=== PATIENT | female | born 1995 | race Native Hawaiian/Other Pacific Islander ===

== ENCOUNTER 2018-10-22 02:22 | Emergency (ER) | payer OTHER | END 2018-10-22 04:44 | disposition home or self-care (01) | LOC: ERS 02:22 | DX: O99.513 Diseases of the respiratory system complicating pregnancy, third trimester (principal); J02.9 Acute pharyngitis, unspecified; Z3A.33 33 weeks gestation of pregnancy | CPT/HCPCS: 99283 ==